=== PATIENT | female | born 1990 | race Caucasian/White ===

== ENCOUNTER 2017-02-28 06:21 | Emergency (ER) | payer SELFPAY ==
[2017-02-28 08:15] VITALS: BP 108/64
== END 2017-02-28 08:24 | disposition home or self-care (01) ==
LOC: ED 06:21
DX: N76.0 Acute vaginitis (principal)
CPT/HCPCS: 87491; 87591

== ENCOUNTER 2019-04-18 20:23 | Emergency (ER) | payer SELFPAY ==
[~2019-04-18] VITALS: Ht 149.9 cm; Wt 51.7 kg
[2019-04-18 21:17] VITALS: Ht 149.9 cm; Wt 51.7 kg
[2019-04-18 22:31] VITALS: BP 131/86
== END 2019-04-18 22:31 | disposition home or self-care (01) ==
LOC: ED 20:23
DX: N30.00 Acute cystitis without hematuria (principal)
CPT/HCPCS: 82962